=== PATIENT | male | born 1990 | race Caucasian/White ===

== ENCOUNTER 2016-06-01 14:47 | Emergency (ER) | payer OTHER ==
[~2016-06-01] VITALS: Ht 170.2 cm; Wt 70.0 kg
[~2016-06-01 14:47] MED LIST: IBUP800T23 PO
[2016-06-01 14:48] VITALS: BP 178/91; PULSE 52; RESP 16; TEMP 97.6; O2SAT 97
--- NOTE | 2016-06-01 15:32 | PD ---
HPI Chief Complaint: Abdominal Pain Time Seen by Provider: 15:31 Travel History International Travel<30 days: No Contact w/Intl Traveler<30days: No Traveled to known affect area: No History of Present Illness HPI 26-year-old male presents to emergency department for evaluation of left lower quadrant pain, sharp, stabbing. Patient states that he had an abscess similar to weeks ago I thought he was constipated. He took laxatives had a bowel movement and the pain subsided. He states the pain comes back today and is much worse. He had a bowel movement this morning. He continues to have a sensation that he needs to have a bowel movement but is unable to. Had an episode of vomiting on the way here but is uncertain if it was related to car sickness. Denies any fever or chills. No chest or tightness. No difficulty breathing. No other symptoms to report. PFSH Past Medical History Medical History: Denies Significant Hx Social History Alcohol Use: Yes Tobacco Use: No Substance Use: No Allergies-Medications (Allergen,Severity, Reaction): Uncoded Allergies: dayquil (Allergy, Severe, Nausea/Vomiting, 01/23/16) Reported Meds & Prescriptions Reported Meds & Active Scripts Active Ibuprofen 800 Mg Tab 800 Mg PO TID PRN Review of Systems Except as stated in HPI: all other systems reviewed are Neg Physical Exam Narrative GENERAL: Well-nourished male patient, ambulatory and in no acute distress SKIN: Warm and dry. HEAD: Atraumatic. Normocephalic. EYES: Pupils equal and round. No scleral icterus. No injection or drainage. ENT: No nasal bleeding or discharge. Mucous membranes pink and moist. NECK: Trachea midline. No JVD. CARDIOVASCULAR: Regular rate and rhythm. No murmur appreciated. RESPIRATORY: No accessory muscle use. Clear to auscultation. Breath sounds equal bilaterally. GASTROINTESTINAL: Abdomen soft, nondistended. Tenderness elicited deep palpation left lower quadrant. No rebound tenderness. No guarding.. Hepatic and splenic margins not palpable. MUSCULOSKELETAL: No obvious deformities. No clubbing. No cyanosis. No edema. NEUROLOGICAL: Awake and alert. No obvious cranial nerve deficits. Motor grossly within normal limits. Normal speech. PSYCHIATRIC: Appropriate mood and affect; insight and judgment normal. Data Data Last Documented VS Vital Signs Date Time Temp Pulse Resp B/P Pulse Ox O2 Delivery O2 Flow Rate FiO2 06/01/16 14:48 97.6 52 16 178/91 97 Orders Basic Metabolic Panel (Bmp) (06/01/16 15:37) Complete Blood Count With Diff (06/01/16 15:37) Prothrombin Time / Inr (Pt) (06/01/16 15:37) Act Partial Throm Time (Ptt) (06/01/16 15:37) Urinalysis - C+S If Indicated (06/01/16 15:37) Labs Laboratory Tests Test 06/01/16 16:15 White Blood Count 11.7 TH/MM3 Red Blood Count 5.01 MIL/MM3 Hemoglobin 14.7 GM/DL Hematocrit 43.5 % Mean Corpuscular Volume 86.8 FL Mean Corpuscular Hemoglobin 29.2 PG Mean Corpuscular Hemoglobin 33.7 % Concent Red Cell Distribution Width 13.0 % Platelet Count 244 TH/MM3 Mean Platelet Volume 7.5 FL Neutrophils (%) (Auto) 88.3 % Lymphocytes (%) (Auto) 8.3 % Monocytes (%) (Auto) 3.3 % Eosinophils (%) (Auto) 0.0 % Basophils (%) (Auto) 0.1 % Neutrophils # (Auto) 10.3 TH/MM3 Lymphocytes # (Auto) 1.0 TH/MM3 Monocytes # (Auto) 0.4 TH/MM3 Eosinophils # (Auto) 0.0 TH/MM3 Basophils # (Auto) 0.0 TH/MM3 CBC Comment DIFF FINAL Differential Comment Prothrombin Time 11.4 SEC Prothromb Time International 1.0 RATIO Ratio Activated Partial 26.8 SEC Thromboplast Time Sodium Level 145 MEQ/L Potassium Level 4.3 MEQ/L Chloride Level 108 MEQ/L Carbon Dioxide Level 29.9 MEQ/L Anion Gap 7 MEQ/L Blood Urea Nitrogen 13 MG/DL Creatinine 1.40 MG/DL Estimat Glomerular Filtration 61 ML/MIN Rate Random Glucose 106 MG/DL Calcium Level 9.0 MG/DL [facility] Medical Decision Making Medical Screen Exam Complete: Yes Emergency Medical Condition: Yes Medical Record Reviewed: Yes Differential Diagnosis Colitis versus diverticulitis versus constipation versus UTI Narrative Course 26-year-old male presents to emergency department for evaluation. Patient appears overall well and without distress. He does have tenderness also to deep palpation left lower quadrant. He is also quite hypertensive here in triage. Work up is initiated. Once a medical bed becomes available, patient will be transferred and care assumed by that provider. Condition: Stable Valentina Suresh ASHA Jun 01, 2016 15:31 Diagnosis Primary Impression: Abdominal pain Qualified Code: R10.32 - Left lower quadrant pain Disposition: 07 AGAINST MEDICAL ADVICE Condition: Valentina So ASHA Jun 01, 2016 15:31
[2016-06-01 16:59] LABS: AUTOMATED NEUTROPHIL # 10.3 TH/MM3 (1.8-7.7); BASOPHIL % 0.1 % (0.0-2.0); HEMATOCRIT 43.5 % (39.0-51.0); HEMO FLAGS DIFF FINAL; LYMPH % 8.3 % (9.0-44.0); MEAN CELL VOLUME 86.8 FL (80.0-100.0); MEAN CORPUSCULAR HEMOGLOBIN 29.2 PG (27.0-34.0); MEAN CORPUSCULAR HGB CONC 33.7 % (32.0-36.0); MONO % 3.3 % (0.0-8.0); NEUT % 88.3 % (16.0-70.0); PLATELET COUNT 244 TH/MM3 (150-450); RED BLOOD COUNT 5.01 MIL/MM3 (4.50-5.90); WHITE BLOOD COUNT 11.7 TH/MM3 (4.0-11.0)
[2016-06-01 17:10] LABS: BICARBONATE 29.9 MEQ/L (21.0-32.0); POTASSIUM 4.3 MEQ/L (3.5-5.1)
[2016-06-01 17:14] LABS: APTT (PATIENT) 26.8 SEC (24.3-30.1); PROTHROMBIN TIME - PATIENT 11.4 SEC (9.8-11.6)
--- NOTE | 2016-06-01 22:44 | PD ---
Physical Exam Date Seen by Provider: Jun 01, 2016 Data Data Last Documented VS Vital Signs Date Time Temp Pulse Resp B/P Pulse Ox O2 Delivery O2 Flow Rate FiO2 06/01/16 14:48 97.6 52 16 178/91 97 Orders Basic Metabolic Panel (Bmp) (06/01/16 15:37) Complete Blood Count With Diff (06/01/16 15:37) Prothrombin Time / Inr (Pt) (06/01/16 15:37) Act Partial Throm Time (Ptt) (06/01/16 15:37) Urinalysis - C+S If Indicated (06/01/16 15:37) Ct Abd/Pel W/O Iv Contrast (06/01/16 22:39) Sodium Chlor 0.9% 1000 Ml Inj (Ns 1000 M (06/01/16 22:45) Urine Culture (06/01/16 23:00) Ceftriaxone Inj (Rocephin Inj) (06/01/16 23:45) Strain Urine PRN (06/02/16 00:11) Labs Laboratory Tests Test 06/01/16 06/01/16 16:15 23:00 White Blood Count 11.7 TH/MM3 Red Blood Count 5.01 MIL/MM3 Hemoglobin 14.7 GM/DL Hematocrit 43.5 % Mean Corpuscular Volume 86.8 FL Mean Corpuscular Hemoglobin 29.2 PG Mean Corpuscular Hemoglobin 33.7 % Concent Red Cell Distribution Width 13.0 % Platelet Count 244 TH/MM3 Mean Platelet Volume 7.5 FL Neutrophils (%) (Auto) 88.3 % Lymphocytes (%) (Auto) 8.3 % Monocytes (%) (Auto) 3.3 % Eosinophils (%) (Auto) 0.0 % Basophils (%) (Auto) 0.1 % Neutrophils # (Auto) 10.3 TH/MM3 Lymphocytes # (Auto) 1.0 TH/MM3 Monocytes # (Auto) 0.4 TH/MM3 Eosinophils # (Auto) 0.0 TH/MM3 Basophils # (Auto) 0.0 TH/MM3 CBC Comment DIFF FINAL Differential Comment Prothrombin Time 11.4 SEC Prothromb Time International 1.0 RATIO Ratio Activated Partial 26.8 SEC Thromboplast Time Sodium Level 145 MEQ/L Potassium Level 4.3 MEQ/L Chloride Level 108 MEQ/L Carbon Dioxide Level 29.9 MEQ/L Anion Gap 7 MEQ/L Blood Urea Nitrogen 13 MG/DL Creatinine 1.40 MG/DL Estimat Glomerular Filtration 61 ML/MIN Rate Random Glucose 106 MG/DL Calcium Level 9.0 MG/DL Urine Color YELLOW Urine Turbidity CLOUDY Urine pH 7.0 Urine Specific [place] 1.023 Urine Protein 30 mg/dL Urine Glucose (UA) NEG mg/dL Urine Ketones NEG mg/dL Urine Occult Blood LARGE Urine Nitrite NEG Urine Bilirubin NEG Urine Urobilinogen LESS THAN 2.0 MG/DL Urine Leukocyte Esterase TRACE Urine RBC /hpf Urine WBC 28 /hpf Urine Squamous Epithelial 1 /hpf Cells Urine Renal Epithelial Cells <1 /hpf Urine Amorphous Sediment RARE Urine Bacteria OCC /hpf Urine Hyaline Casts 19 /lpf Urine Mucus FEW /lpf Microscopic Urinalysis Comment CULTURE INDICATED MDM Medical Record Reviewed: Yes Supervised Visit with DANILO: Yes Interpretation(s) Vital Signs Date Time Temp Pulse Resp B/P Pulse Ox O2 Delivery O2 Flow Rate FiO2 06/01/16 14:48 97.6 52 16 178/91 97 Last Impressions Abdomen/Pelvis CT 06/01/16 2729 Signed Impressions: Service Date/Time: Wednesday, June 01, 2016 22:46 - CONCLUSION: 3 mm stone of the left ureterovesical junction causing mild to moderate obstructive uropathy. The calculus is not well seen on the initial discotheque dancer radiograph. Mateo Grant MD CBC & BMP Diagram 06/01/16 16:15 Differential Diagnosis Kidney stone, constipation, colitis, UTI Narrative Course I, Dr. Suarez, have reviewed the advance practice practitioner's documentation and am in agreement, met with the patient face to face, made the diagnosis, and the medical decision making was done by me. Patient is a 26-year-old male who presents to emergency room with complaints of left lower quadrant abdominal pain which started earlier this morning. Patient reports that when he had this pain, pain was sharp and stabbing. Patient reports that he started to cry because of this pain. States that he had similar symptoms 2 weeks ago which resolved on its own but was concerned when he had return of pain today. Patient denies nausea or vomiting, denies fevers or chills. Denies diarrhea. Reports that he does feel constipated but did have a bowel movement 2 hours ago while in the emergency room. Denies any sick contacts. Denies any history of any abdominal surgeries in the past dysuria, Urgency or frequency. Patient with continued pain while in the emergency room. CBC: WBC 11.7 Hemoglobin 14.7 Hematocrit 43.5 Platelets 244 BMP Sodium 145 Chloride 108 Potassium 4.3 BUN 13 Creatinine 1.4 UA pending Plan to order a CAT scan of abdomen and pelvis for further evaluation symptoms. *My assessment and Findings: Abdominal pain secondary to obstructive uropathy: Patient with 3 mm stone in the left UVJ with [id number] obstructive uropathy. UA positive for occult blood, positive for 20 white blood cells, occasional bacteria, trace leuk esterase, will give patient a dose of IV Rocephin. Urine culture sent. Discussed need for patient to strain his urine. Understands need to follow-up with urology, patient will strain his urine. Patient will take all antibiotics as prescribed. He will also follow up with cultures from today. He will return to ER as needed. Diagnosis Primary Impression: Abdominal pain Qualified Code: R10.32 - Left lower quadrant pain Additional Impressions: Renal insufficiency Kidney stone on left side UTI (urinary tract infection) Qualified Code: N30.01 - Acute cystitis with hematuria Referrals: Luis Strong MD Patient Instructions: Narcotic given in the ED, General Instructions Additional Instruction: Please follow-up with your primary care doctor as soon as possible Please strained your urine Please call to make an appointment with urology, please bring your kidney stone to your doctor's appointment Please follow up with cultures from today Return to ER if symptoms progress or worsen Please do not drive or operate heavy machinery while taking narcotic pain medications Med/Other Pt SpecificInfo: Prescription(s) given Scripts Ibuprofen 600 Mg [id number] Mg PO Q6H PRN (Pain/Inflammation) #40 TAB Ref 0 Prov:Erica Suarez DO 06/02/16 Tamsulosin (Flomax)0.4 Mg Cap0.4 Mg PO HS #10 CAP Ref 0 Prov:Eriac Suarez DO 06/02/16 Hydrocodone-Acetaminophen (Lortab)5-325 Mg Tab1 Tab PO Q6H PRN (PAIN) #15 TAB Ref 0 Prov:Erica Suarez DO 06/02/16 Levofloxacin (Levaquin)500 Mg Drp177 Mg PO DAILY 7 Days Ref 0 Prov:Erica Suarez DO 06/02/16 Disposition: DISCHARGE HOME Condition: Stable Erica Suarez DO Jun 01, 2016 22:44
[2016-06-01] MEDS ORDERED: SODIUM CHLOR 0.9% 1000 ML INJ 1,000 ML IV ONE (22:45)
--- NOTE | 2016-06-01 23:16 | RADRPT ---
EXAM DATE/TIME: 06/01/2016 22:46 [facility] COMPARISON: No previous studies available for comparison. INDICATIONS : Left lower qaudrant pain. ORAL CONTRAST: No oral contrast ingested. RADIATION DOSE: 13.28 CTDIvol (mGy) MEDICAL HISTORY : None SURGICAL HISTORY : None. ENCOUNTER: Initial ACUITY: 1 day PAIN SCALE: 7/10 LOCATION: Left lower quadrant TECHNIQUE: Volumetric scanning of the abdomen and pelvis was performed. Using automated exposure control and ad justment of the mA and/or kV according to patient size, radiation dose was kept as low as reasonably achievable to obtain optimal diagnostic quality images. FINDINGS: LOWER LUNGS: The visualized lower lungs are clear. LIVER: Homogeneous density without lesion. There is no dilation of the biliary tree. No calcified gallston es. SPLEEN: Normal size without lesion. PANCREAS: Within normal limits. KIDNEYS: There is a 3 mm stone of the left ureterovesical junction causing mild to moderate hydroureter and mi ld hydronephrosis. The no other stones are seen. There is no hydronephrosis or hydroureter on the rig ht. ADRENAL GLANDS: Within normal limits. VASCULAR: There is no aortic aneurysm. BOWEL/MESENTERY: The stomach, small bowel, and colon demonstrate no acute abnormality. There is no free intraperitone al air or fluid. ABDOMINAL WALL: Within normal limits. RETROPERITONEUM: There is no lymphadenopathy. BLADDER: No wall thickening or mass. REPRODUCTIVE: Within normal limits. INGUINAL: There is no lymphadenopathy or hernia. MUSCULOSKELETAL: Within normal limits for patient age. CONCLUSION: 3 mm stone of the left ureterovesical junction causing mild to moderate obstructive uropathy. The wade culus is not well seen on the initial membership assistant radiograph. Mateo Grant MD on June 01, 2016 at 23:12 Board Certified Radiologist. This report was verified electronically.
[2016-06-01 23:30] LABS: BACTERIA, URINE OCC /hpf; BLOOD, URINE LARGE (NEG); GLUCOSE,URINE NEG (NEG); HYALINE CAST, URINE 19 /lpf (RARE); KETONE, URINE NEG (NEG); MUCUS URINE FEW /lpf (OCC); NITRITE,URINE NEG (NEG); RENAL EPITHELIAL CELLS <1 /hpf; SQUAMOUS EPITHELIAL CELL URINE 1 /hpf (0-5); URINE COLOR YELLOW (YELLW/STRAW)
[2016-06-01 23:32] LABS: COMMENT (UR) CULTURE INDICATED; CULTURE IF INDICATED CULTURE INDICATED
[2016-06-01] MEDS ORDERED: cefTRIAXone INJ 1,000 MG in SODIUM CHLORIDE 0.9% INJ 100 ML IV ONE (23:45)
[2016-06-02] VITALS: BP 105/60; PULSE 75; RESP 18; O2SAT 99
[2016-06-02] MEDS ORDERED: TAMS5CAP PO (00:11)
[2016-06-02] MEDS ORDERED: LEVA500T PO (00:11)
[2016-06-02] MEDS ORDERED: IBUP-232 PO (00:11)
[2016-06-02] MEDS ORDERED: HYDR-3533 PO (00:11)
== END 2016-06-02 00:49 | disposition home or self-care (01) ==
LOC: NEPA 14:47
DX: R10.32 Left lower quadrant pain (principal); N28.9 Disorder of kidney and ureter, unspecified; N20.1 Calculus of ureter; N30.01 Acute cystitis with hematuria
CPT/HCPCS: 74176; 80048; 81001; 85025; 85610; 85730; 87086; 96374; 99284; J0696; J7030